=== PATIENT | female | born 1965 | race American Indian/Alaskan Native ===

== ENCOUNTER 2016-12-22 06:51 | Day surgery (SDC) | payer OTHER ==
[2016-12-22 07:22] VITALS: BMI 27.4
[2016-12-22 07:53] VITALS: O2SAT 100
[2016-12-22] MEDS ORDERED: Propofol 10 mg/ml Inj (20 ML) ONE (08:06)
[2016-12-22] MEDS ORDERED: Lactated Ringer's 500 ML IV SCH (08:30)
[2016-12-22 09:11] VITALS: TEMP 97.4
[2016-12-22 09:51] VITALS: BP 130/76; PULSE 56; RESP 15
== END 2016-12-22 10:20 | disposition home or self-care (01) ==
LOC: C.ENDO 06:51
PROVIDERS: ATTEND Internal Medicine Gastroenterology
DX: D12.2 Benign neoplasm of ascending colon (principal); K64.8 Other hemorrhoids
CPT/HCPCS: 45388; 84703; 88305; J2001; J2704; J3010; J7120

== ENCOUNTER 2017-08-17 08:52 | Emergency (ER) | payer OTHER ==
[2017-08-17 08:53] VITALS: BMI 27.4
[2017-08-17 09:33] VITALS: BP 135/84; PULSE 64; RESP 16; TEMP 97.3; O2SAT 100
--- NOTE | 2017-08-17 10:39 | C.PDOC ---
History Of Present Illness 51 y/o female presents to the ER complaining of back pain in the left sacroiliac area which has been present for the past 2 weeks. Patient states that the pain radiates up the left side of her body. Patient reports that the pain is worse with showers. Patient does not have any other complaints. Time Seen by Provider: 08/17/17 09:55 Chief Complaint (Nursing): Back Pain History Per: Patient History/Exam Limitations: no limitations Onset/Duration Of Symptoms: Days Current Symptoms Are (Timing): Still Present Severity: Moderate Past Medical History Reviewed: Historical Data, Nursing Documentation, Vital Signs Vital Signs: Last Vital Signs Temp 97.3 F L 08/17/17 09:15 Pulse 64 08/17/17 09:15 Resp 16 08/17/17 09:15 BP 135/84 08/17/17 09:15 Pulse Ox 100 08/17/17 11:12 - Medical History PMH: Anemia (IRON DEFICIENCY), Arthritis, HTN Denies: Fractures, Chronic Kidney Disease Surgical History: No Surg Hx - [facility] Procedures APPLICATION OF SPLINT (07/14/14) Family History: States: No Known Family Hx - Social History Hx Tobacco Use: No Hx Alcohol Use: No Hx Substance Use: No - Immunization History Hx Tetanus Toxoid Vaccination: Yes Hx Influenza Vaccination: Yes Hx Pneumococcal Vaccination: No Review Of Systems Except As Marked, All Systems Reviewed And Found Negative. Musculoskeletal: Positive for: Back Pain Neurological: Negative for: Weakness, Numbness Physical Exam - Physical Exam Appears: Non-toxic, No Acute Distress Skin: Normal Color, Warm Head: Atraumatic, Normacephalic Eye(s): bilateral: Normal Inspection Nose: Normal Oral Mucosa: Moist Neck: Supple Chest: Symmetrical Cardiovascular: Rhythm Regular Respiratory: Normal Breath Sounds, No Accessory Muscle Use, No Rales, No Rhonchi , No Wheezing Back: Normal Inspection, Paraspinal Tenderness (muscle tenderness in the left lower lumbar extensor muscles) Extremity: Normal ROM Neurological/Psych: Oriented x3, Normal Speech, Normal Motor, Normal Sensation ED Course And Treatment O2 Sat by Pulse Oximetry: 100 (RA) Pulse Ox Interpretation: Normal Progress Note: Patient was given Motrin and ice pack. Patient feels better and will be discharged. Medical Decision Making Medical Decision Making: lumbar strain/sprain improved with ice/NSAIDS Disposition Doctor Will See Patient In The: Office Counseled Patient/Family Regarding: Studies Performed, Diagnosis - Disposition Referrals: Shaik Barba MD [Staff Provider] - Disposition: HOME/ ROUTINE Disposition Time: 10:38 Condition: GOOD Additional Instructions: continue ice packs 1/2 hour per hour, nothing hot, no hot showers. MOtrin 400-600 mg every 6 hours as needed for local pain Follow-up with PMD as needed Instructions: Musculoskeletal Pain (ED) Forms: [facility] (Amharic) - Clinical Impression Clinical Impression: Low back strain - Scribe Statement The provider has reviewed the documentation as recorded by the Isidroibe Dwayne Corbin Provider Attestation: All medical record entries made by the Scribe were at my direction and personally dictated by me. I have reviewed the chart and agree that the record accurately reflects my personal performance of the history, physical exam, medical decision making, and the department course for this patient. I have also personally directed, reviewed, and agree with the discharge instructions and disposition.
== END 2017-08-17 10:42 | disposition home or self-care (01) ==
LOC: C.ER 08:52
DX: S39.012A Strain of muscle, fascia and tendon of lower back, initial encounter (principal); X58.XXXA Exposure to other specified factors, initial encounter

== ENCOUNTER 2018-01-05 18:43 | Emergency (ER) | payer OTHER ==
[2018-01-05 18:43] VITALS: BMI 27.4
--- NOTE | 2018-01-05 19:07 | C.PDOC ---
History Of Present Illness 52-year-old female, whose PMHx includes DM and HTN, is sent to the ED by her PMD for evaluation of possible anemia. Patient reports shortness of breath with exertion, such as climbing the stairs and walking. Patient denies fever, chills , pain. Chief Complaint (Nursing): Shortness Of Breath History Per: Patient History/Exam Limitations: no limitations Onset/Duration Of Symptoms: Hrs Current Symptoms Are (Timing): Still Present Quality: denies: "Pain" Exacerbating Factor(s): Exertion Current Respiratory Medications: See Home Med List Associated Symptoms: denies: Fever, Chills, Chest Pain Additional History Per: Patient Past Medical History Reviewed: Historical Data, Nursing Documentation, Vital Signs Vital Signs: Last Vital Signs Temp 98 F 01/05/18 18:46 Pulse 71 01/05/18 18:46 Resp 20 01/05/18 19:17 BP 163/103 H 01/05/18 18:46 Pulse Ox 99 01/05/18 20:18 - Medical History PMH: Anemia (IRON DEFICIENCY), Arthritis, HTN Denies: Fractures, Chronic Kidney Disease Surgical History: No Surg Hx - [facility] Procedures APPLICATION OF SPLINT (07/14/14) Family History: States: Unknown Family Hx - Social History Hx Tobacco Use: No Hx Alcohol Use: No Hx Substance Use: No - Immunization History Hx Tetanus Toxoid Vaccination: Yes Hx Influenza Vaccination: Yes Hx Pneumococcal Vaccination: No Review Of Systems Constitutional: Positive for: Other (possible anemia ). Negative for: Fever, Chills Respiratory: Positive for: SOB with Excertion Physical Exam - Physical Exam Appears: Non-toxic, No Acute Distress Skin: Normal Color, Warm, Dry, No Pale Head: Atraumatic, Normacephalic Eye(s): bilateral: Normal Inspection, Other (no conjunctival pallor ) Oral Mucosa: Moist Neck: Supple Chest: Symmetrical, No Deformity, No Tenderness Cardiovascular: Rhythm Regular, No Murmur Respiratory: Normal Breath Sounds, No Rales, No Rhonchi, No Wheezing Extremity: Normal ROM, Capillary Refill (less than 2 seconds ) Neurological/Psych: Oriented x3, Normal Speech, Normal Cognition ED Course And Treatment - Laboratory Results Result Diagrams: 01/05/18 19:41 01/05/18 19:41 ECG: Interpreted By Me, Viewed By Me ECG Rhythm: Sinus Rhythm ECG Interpretation: Normal, No Acute Changes Interpretation Of ECG: NSR, normal tracings. Rate From EC O2 Sat by Pulse Oximetry: 99 (on RA) Pulse Ox Interpretation: Normal - Radiology CXR: Interpreted by Me, Viewed By Me CXR Interpretation: Yes: No Acute Disease, Other (normal chest film). No: Infiltrates Progress Note: Bloodwork, CXR, EKG ordered and reviewed. Disposition Discussed With : Shaik Jameson Doctor Will See Patient In The: Office Counseled Patient/Family Regarding: Diagnosis - Disposition Referrals: Shaik Barba MD [Staff Provider] - Disposition: HOME/ ROUTINE Disposition Time: 20:34 Condition: STABLE Prescriptions: Potassium Chloride [K-Dur 20] 20 meq PO DAILY #10 tab Instructions: Hypokalemia (DC) Forms: [facility] (Trinidadian) - POA Present On Arrival: None - Clinical Impression Clinical Impression: Hypokalemia - Scribe Statement The provider has reviewed the documentation as recorded by the Scribe (Brenna Maddox) Provider Attestation: All medical record entries made by the Scribe were at my direction and personally dictated by me. I have reviewed the chart and agree that the record accurately reflects my personal performance of the history, physical exam, medical decision making, and the department course for this patient. I have also personally directed, reviewed, and agree with the discharge instructions and disposition.
[2018-01-05 19:46] LABS: BASO % 0.9 % (0.0-2.0); EOS # 0.1 K/uL (0.0-0.7); EOS % 1.4 % (0.0-4.0); HEMOGLOBIN 11.8 g/dL (11.0-16.0); LYMPH # 1.8 K/uL (1.0-4.3); MEAN CELL VOLUME 91.6 fL (81.0-99.0); MEAN CORPUSCULAR HEMOGLOBIN 30.7 pg (27.0-31.0); MEAN CORPUSCULAR HGB CONC 33.5 g/dL (33.0-37.0); MEAN PLATELET VOLUME 9.6 fL (7.2-11.7); MONO # 0.4 K/uL (0.0-0.8); MONO % 8.2 % (0.0-10.0); NEUT # 2.1 K/uL (1.8-7.0); NEUT % 48.5 % (50.0-75.0); RBC 3.85 Mil/uL (3.80-5.20); RED CELL DISTRIBUTION WIDTH 12.8 % (11.5-14.5); WHITE BLOOD COUNT 4.4 K/uL (4.8-10.8)
[2018-01-05 19:53] LABS: INR 1.1; PROTHROMBIN TIME 12.5 SECONDS (9.7-12.2)
[2018-01-05 20:00] VITALS: RESP 20
[2018-01-05 20:02] LABS: ALB/GLOB RATIO 1.5 (1.0-2.1); ALBUMIN 4.2 g/dL (3.5-5.0); ALT/SGPT 35 U/L (9-52); AST/SGOT 34 U/L (14-36); BLOOD UREA NITROGEN 21 mg/dL (7-17); CALCIUM 8.8 mg/dl (8.6-10.4); GFR AFRICAN-AMERICAN > 60; GFR NON-AFRICAN AMERICAN > 60
[2018-01-05] MEDS ORDERED: Potassium Chloride 20 mEq/15 ml LIQ UD PO STA (20:29)
[2018-01-05] MEDS ORDERED: Potassium Chloride 20 mEq ER Tab PO STA (20:32)
[2018-01-05] MEDS ORDERED: Potassium Chloride 20 mEq ER Tab PO ONE (20:34)
[2018-01-05 20:50] VITALS: BP 148/80; PULSE 98; TEMP 98.2; O2SAT 98
--- NOTE | 2018-01-09 12:06 | CARD ---
APPROVED REPORT EKG Measurement Heart [id number] MD [id number] <Conclusion> Normal sinus rhythm Normal ECG
== END 2018-01-05 20:50 | disposition home or self-care (01) ==
LOC: C.ER 18:43
DX: E87.6 Hypokalemia (principal)

== ENCOUNTER 2018-03-08 12:09 | Emergency (ER) | payer OTHER ==
[2018-03-08 12:10] VITALS: BMI 27.4
[2018-03-08 12:26] VITALS: BP 144/90; PULSE 68; RESP 20; TEMP 98.1; O2SAT 100
--- NOTE | 2018-03-08 12:44 | C.PDOC ---
History Of Present Illness WORSENING L SHOULDER PAIN X 1 WEEK. 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 NO TRAUMA. PS OCC GETS PAIN TO AREA FOR A WHILE BUT MUCH WORSE THIS WEEK. NO OTHER ASSOC SX. MOD RELIEF MOTRIN 400 MG EXAM MILD DIST EXT L SHOULDER +BEER CAN TEST NO FOCAL TEND. LIMITED FULL ADDUCTION, FLEX. ATRAUM SKIN WNL NEURO INTACT Time Seen by Provider: 03/08/18 12:36 Chief Complaint (Nursing): Upper Extremity Problem/Injury History Per: Patient History/Exam Limitations: no limitations Onset/Duration Of Symptoms: Days Current Symptoms Are (Timing): Still Present Severity: Moderate Past Medical History Reviewed: Historical Data, Nursing Documentation, Vital Signs Vital Signs: Last Vital Signs Temp 98.1 F 03/08/18 12:37 Pulse 68 03/08/18 12:37 Resp 20 03/08/18 12:37 BP 144/90 03/08/18 12:37 Pulse Ox 100 03/08/18 12:47 - Medical History PMH: Anemia (IRON DEFICIENCY), Arthritis, HTN Denies: Fractures, Chronic Kidney Disease Surgical History: No Surg Hx - [facility] Procedures APPLICATION OF SPLINT (07/14/14) Family History: States: No Known Family Hx - Social History Hx Tobacco Use: No Hx Alcohol Use: No Hx Substance Use: No - Immunization History Hx Tetanus Toxoid Vaccination: Yes Hx Influenza Vaccination: Yes Hx Pneumococcal Vaccination: No Review Of Systems Except As Marked, All Systems Reviewed And Found Negative. Musculoskeletal: Positive for: Shoulder Pain (left shoulder pain) Neurological: Negative for: Weakness, Numbness Physical Exam - Physical Exam Appears: Other (mild distress) Skin: Normal Color, Warm, Dry, Other (WNL) Head: Atraumatic, Normacephalic Eye(s): bilateral: Normal Inspection Respiratory: Other (NARD) Extremity: No Normal ROM (left shoulder: limited full adduction, flexion), Other (left shoulder: + beer can test, no focal tenderness, atraumatic) Neurological/Psych: Oriented x3, Normal Speech ED Course And Treatment O2 Sat by Pulse Oximetry: 100 (RA) Pulse Ox Interpretation: Normal Medical Decision Making Medical Decision Making: Plan: --Motrin PO --Tylenol PO --Tramadol PO Disposition Counseled Patient/Family Regarding: Diagnosis, Need For Followup, Rx Given - Disposition Referrals: YOUR,PMD [Other] Disposition: HOME/ ROUTINE Disposition Time: 12:46 Condition: IMPROVED Prescriptions: Ibuprofen [Motrin] 600 mg PO Q6 #30 tab traMADol/Acetaminophen [Ultracet 325 MG-37.5 MG] 1 tab PO TID #21 tab Instructions: Rotator Cuff Injury (DC) Forms: [facility] (Malian), Work Excuse - Clinical Impression Clinical Impression: Shoulder strain - Scribe Statement The provider has reviewed the documentation as recorded by the Jonel Corbin Provider Attestation: All medical record entries made by the Jonel were at my direction and personally dictated by me. I have reviewed the chart and agree that the record accurately reflects my personal performance of the history, physical exam, medical decision making, and the department course for this patient. I have also personally directed, reviewed, and agree with the discharge instructions and disposition.
== END 2018-03-08 12:55 | disposition home or self-care (01) ==
LOC: C.ER 12:09
DX: S46.912A Strain of unspecified muscle, fascia and tendon at shoulder and upper arm level, left arm, initial encounter (principal); X58.XXXA Exposure to other specified factors, initial encounter

== ENCOUNTER 2018-09-06 09:21 | Outpatient (CLI) | payer OTHER | END 2018-09-06 09:22 | disposition home or self-care (01) | LOC: C.LAB 09:21 | DX: I10 Essential (primary) hypertension (principal); E55.9 Vitamin D deficiency, unspecified ==

== ENCOUNTER 2018-12-08 14:28 | Emergency (ER) | payer OTHER ==
[2018-12-08 14:37] VITALS: BMI 28.3
[2018-12-08 14:39] VITALS: RESP 18; TEMP 98.7; O2SAT 100
--- NOTE | 2018-12-08 15:10 | C.PDOC ---
History Of Present Illness 53 y/o female pt with hx of HTN presents to the ER c/o pain on the hard palate of her mouth for x4 days. Pt notes that pain increases when she eats and the pain would radiate to her face and neck. Associated sx includes nausea and headache. Pt denies any numbness and tingling. Pt was seen by PMD Dr. Watson and was told to take 500 mg of tylenol but patient notes minimal relief. Time Seen by Provider: 12/08/18 14:42 Chief Complaint (Nursing): Dental Pain History Per: Patient History/Exam Limitations: no limitations Onset/Duration Of Symptoms: Days (x4) Current Symptoms Are (Timing): Still Present Severity: Moderate Quality: Positive for: "Pain" Past Medical History Reviewed: Historical Data, Nursing Documentation, Vital Signs Vital Signs: Last Vital Signs Temp 98.7 F 12/08/18 14:37 Pulse 71 12/08/18 14:37 Resp 18 12/08/18 14:37 BP 138/91 H 12/08/18 14:37 Pulse Ox 100 12/08/18 14:37 Primary Care Provider: Conrado Watson - Medical History PMH: Anemia (IRON DEFICIENCY), Arthritis, HTN - [facility] Procedures APPLICATION OF SPLINT (07/14/14) Family History: States: Unknown Family Hx - Social History Hx Tobacco Use: No Hx Alcohol Use: No Hx Substance Use: No - Immunization History Hx Tetanus Toxoid Vaccination: Yes Hx Influenza Vaccination: Yes Hx Pneumococcal Vaccination: No Review Of Systems Constitutional: Positive for: Other (pain to face radiated from mouth pain). Negative for: Fever, Chills ENT: Positive for: Other (pain on roof of mouth) Cardiovascular: Negative for: Chest Pain Respiratory: Negative for: Shortness of Breath Musculoskeletal: Positive for: Neck Pain (radiated from mouth pain) Neurological: Negative for: Numbness, Other (tingling) Physical Exam - Physical Exam Appears: Non-toxic, No Acute Distress Skin: Normal Color, Warm, Dry Head: Atraumatic, Normacephalic Eye(s): bilateral: Normal Inspection, PERRL Ear(s): Bilateral: Normal Nose: No Discharge Oral Mucosa: Moist, Other (left-sided ulcers on hard palate) Tongue: Normal Appearing Lips: Normal Appearing Throat: Normal, No Erythema, No Exudate Cardiovascular: Rhythm Regular Respiratory: Normal Breath Sounds, No Accessory Muscle Use Neurological/Psych: Oriented x3, Normal Speech, Normal Motor, Normal Sensation ED Course And Treatment O2 Sat by Pulse Oximetry: 100 (RA) Pulse Ox Interpretation: Normal Disposition Counseled Patient/Family Regarding: Diagnosis, Need For Followup, Rx Given - Disposition Referrals: Conrado Watson MD [Staff Provider] - Disposition: HOME/ ROUTINE Disposition Time: 15:14 Condition: STABLE Additional Instructions: Use mouthwash or orajel as needed Follow up with PMD or dentist in 1-2 days to reassess oral cavity Return to the ED if symptoms worsen Prescriptions: Benzocaine 20% [Orajel PM Maximum Strength] 7 gm MM PRN PRN #1 tube PRN Reason: Other Mag&Al/Simet/Diphen/Lido [First Magic Mouthwash] 5 ml MM PRN PRN #1 kit PRN Reason: Other Instructions: Mouth Sores Forms: [facility] (Amharic), Work Excuse - Clinical Impression Clinical Impression: Ulcer of hard palate, Oral cavity pain - PA / ACCOUNT RESOLUTION EXPERT / Resident Statement MD/ has reviewed & agrees with the documentation as recorded. - Scribe Statement The provider has reviewed the documentation as recorded by the Jonel Bueno Do All medical record entries made by the Scribe were at my direction and personally dictated by me. I have reviewed the chart and agree that the record accurately reflects my personal performance of the history, physical exam, medical decision making, and the department course for this patient. I have also personally directed, reviewed, and agree with the discharge instructions and disposition.
[2018-12-08 15:32] VITALS: BP 132/89; PULSE 82
== END 2018-12-08 15:32 | disposition home or self-care (01) ==
LOC: C.ER 14:28
DX: K12.1 Other forms of stomatitis (principal); K13.79 Other lesions of oral mucosa